=== PATIENT | male | born 2000 | race Hispanic/Latino ===

== ENCOUNTER 2022-09-08 16:38 | Emergency (ER) | payer BC ==
[2022-09-08] MEDS ORDERED: Ibuprofen 800 MG TAB ONE (17:23)
[2022-09-08] MEDS ORDERED: Dexamethasone 10 MG/ML VIAL ONE (18:03)
[2022-09-08 18:47] LABS: SARS-CoV-2 NAA Rapid Test Not Detected (NotDetected)
[2022-09-09] MEDS ORDERED: Dexameth. Sod Phosp. 10 MG/ML (CHEMO USE ONLY) ONE (15:06)
== END 2022-09-08 18:12 | disposition home or self-care (01) ==
LOC: ERS 16:38
DX: J02.9 Acute pharyngitis, unspecified (principal); Z20.822 Contact with and (suspected) exposure to COVID-19
CPT/HCPCS: 87081; 87430; 99283; J1100